=== PATIENT | male | born 1985 | race African-American/Black ===

== ENCOUNTER 2024-12-07 19:58 | Emergency (ER) | payer OTHER, SELFPAY ==
[2024-12-07 20:00] VITALS: BP 111/73
--- NOTE | 2024-12-07 20:12 | ED.GENMED ---
History of Present Illness
General
Chief Complaint: Foreign Body Ingestion
Source: patient
Exam Limitations: none
Time Seen by Provider: 12/07/24 20:11
Nursing documentation reviewed up to this point in time: agreed with
History of Present Illness
History of Present Illness:
39-year-old male prisoner is here for swallowing for soft rubber earbuds he states 'because I was being harassed and I was afraid of the inmates.' He denies chest pain or abdominal pain. Denies trouble breathing. States he was trying to kill
himself, has attempted suicide in past with overdose.
Past History
Past History
ED Past Medical History: None
ED Past Surgical History: None
Social History
Tobacco: Non-smoker
Living: senior care
Review of Systems
Review of Systems
Allergies reviewed?: Yes
All Other Systems: ROS reviewed and negative except as documented in HPI and ROS
Phy Exam
Physical Exam
Physical Exam:
GENERAL: No acute distress. A&Ox3.
CONSTITUTIONAL: Afebrile.
EYES: clear, conjunctivae normal
ENMT: moist mucus membranes, Pharynx nl
RESPIRATORY: Regular respirations, nonlabored, lungs clear.
CARDIOVASCULAR: Regular rate and rhythm, no murmurs, no rubs.
GI: Soft, obese, normal nontender, normal BS
MUSCULOSKELETAL: Moves with ease. Well perfused.
SKIN: Warm, dry, pink
PSYCH: Normal mood and affect. Well kept, interactive and appropriate
NEUROLOGIC: Awake, alert and oriented. No focal neurological deficits
Course
Orders/Labs/Results
Orders:
Orders
12/07/24 20:18
CR Chest Single View Urgent
Comment:
Reason For Exam: possible swallowed FB (soft rubber ear buds)
12/07/24 20:19
1:1 Observation - Suicide/ Violent Behavior As Directed
CR Abdomen - 1 View Urgent
Comment:
Reason For Exam: possible swallowed FB (soft rubber ear buds)
Vital Signs
Initial and Last Documented VS:
Initial Vital Signs
Pulse Ox
97
12/07/24 19:59
Last Documented Vital Signs
Temp Pulse Resp BP Pulse Ox
98.2 F 75 20 111/73 95
12/07/24 20:01 12/07/24 20:01 12/07/24 20:01 12/07/24 20:00 12/07/24 20:45
MDM/Problems Addressed
MDM/Problems Addressed:
39-year-old male prisoner is here for swallowing for soft rubber earbuds he states 'because I was being harassed and I was afraid of the inmates.' He denies chest pain or abdominal pain. Denies trouble breathing. States he was trying to kill
himself, has attempted suicide in past with overdose.
Spoke with [facility] in crisis, she states they do not evaluate prisoners, they will do that at the senior care, provide 1 on 1 if needed and if deemed suicidal when released from senior care they will 302 him
Pt is calm and cooperative
10:00 PM:
Flatplate abdomen reveals a few eloy from cholecystectomy otherwise no radiopaque foreign body noted.
Chest x-ray: NAD, no radiopaque foreign body.
Patient is stable for discharge back to senior care
*Pulse Oximetry
Patient hypoxic: no
*Critical Care Note
Total Time (30-74mins, 75-104mins- exclusive of procedures): Not Applicable
ED Attending Note
-
Portions of this chart may have been created with voice recognition software.� Occasional wrong word or��sound alike� substitutions may have occurred due to the inherent limitations of voice recognition software.
Discharge Plan
Departure
Patient Disposition: Skilled Nursing
Date of Disposition: 12/07/24
Time of Disposition: 21:59
Patient with high blood pressure during this ER visit?: No
Condition: Good
Discharge Problem:
Reported swallowed foreign body
Referrals:
[facility] [Family Provider, General]
Activity Restrictions/Additional Instructions:
No radiopaque foreign body noted on chest x-ray or abdominal x-ray.
The patient consumed what he said, which are small soft your beds, they should pass in his stool without a problem.
Interventions
Interventions:
*Risk Screen - Suicide Last Done: 12/07/24 20:01
*General Assessment Last Done: 12/07/24 20:01
*Neglect/Abuse Screening Last Done: 12/07/24 20:01
*ED- Fall Risk Assessment Last Done: 12/07/24 20:01
*ED COVID-19 Vaccine History Last Done: 12/07/24 20:01
*Nursing Disposition Last Done: 12/07/24 22:10
IC-Aywmjg-Ssdgejpdyd Assessment Last Done: 12/07/24 20:01
ED- Pulmonary Assessment Last Done: 12/07/24 20:01
ED-EENT Assessment Last Done: 12/07/24 20:01
Discharge Date and Time
Discharge Date/Time: 12/07/24 22:11
Print Language: SLOVENIAN
== END 2024-12-07 22:11 ==
LOC: EMR 19:58
PROVIDERS: EMERGENCY PHYSICIAN Emergency Medicine
DX: T18.9XXA Foreign body of alimentary tract, part unspecified, initial encounter (principal); W44.G1XA Audio device entering into or through a natural orifice, initial encounter; Z90.49 Acquired absence of other specified parts of digestive tract; Z91.51 Personal history of suicidal behavior
CPT/HCPCS: 99284; 71045; 74018